=== PATIENT | male | born 1940 | race Hispanic/Latino ===

== ENCOUNTER → 2019-08-13 | Outpatient (CLI) | payer MEDICARE ==
[~2019-08-13] MED LIST: ASPI-1197 PO; FAMO20TA8 PO; FERS325 PO; FOLI0.4T2 PO; LEVO75TA10 PO; LISI30TA4 PO; PRAV20TA4 PO; TAMS-1 PO
== END | disposition home or self-care (01) ==
LOC: RAH 08:48
PROVIDERS: ATTEND Family Medicine
DX: N28.1 Cyst of kidney, acquired (principal)
CPT/HCPCS: 76700

== ENCOUNTER → 2024-01-31 | Outpatient (CLI) | payer OTHER ==
[~2024-01-31] MED LIST changes: -FOLI0.4T2 PO; +FOLI0.4T6 PO
== END | disposition home or self-care (01) ==
LOC: RAH 14:39
PROVIDERS: ATTEND Nurse Practitioner Family
DX: Z13.6 Encounter for screening for cardiovascular disorders (principal)
CPT/HCPCS: 75571